=== PATIENT | female | born 1955 | race Caucasian/White ===

== ENCOUNTER 2016-11-14 08:49 | Outpatient (CLI) | payer MEDICAID ==
[~2016-11-14] VITALS: Ht 170.2 cm; Wt 81.8 kg
--- NOTE | ~2016-11-14 | HEMODYNAMI ---
PATIENT:ATILIO ALAN MEDICAL RECORD: [id number] : 55 LOCATION:DPREMA ADMISSION DATE: 11/14/16 Generatedon:11/14/201614:22 Patient name: ATILIO ALAN Patient #: [id number] SSN: : 1955 Date of study: 11/14/2016 Page: Of Hemodynamic Procedure Report Patient Data Patient Demographics Procedure consent was obtained First Name: ATILIO Gender: Female Last Name: DAYANNA : 1955 [facility] Initial: ALIDA Age: 61 year(s) Patient #: [id number] Race: Unknown Additional ID: [id number] Contact details Address: [place] [address] State: [place] City: [place] Zip code: [address] Past Medical History Allergies Allergen Reaction Date Comments Reported Other allergy 11/14/2016 TYLENOL Admission Admission Data Admission Date: 11/14/2016 Admission Time: 8:49 Height (in.): 67 BSA: 1.93 (m2) Height (cm.): 170.18 BMI: 28.19 (kg/m2) Weight (lbs.): 180 Weight (kg.): 81.65 Lab Results Lab Result Date: 11/14/2016 Lab Result Time: 0:00 Biochemistry Name Units Result Min Max BUN mg/dl 17 --(---*)-- 7 18 CK-MB ng/ml 1.6 --(-*--)-- 0 3.6 Creatinine mg/dl 1 --(--*-)-- 0.6 1.3 Creatinine l 81 --(-*--)-- 21 215 Kinase Troponin l ng/ml 0.017 --(-*--)-- 0 0.06 CBC Name Units Result Min Max Hemoglobin g/dl 12.6 -*(----)-- 13.5 17.5 Procedure Procedure Types Cath Procedure Diagnostic Procedure [facility] w/Coronaries PCI Procedure Coronary Stent Initial Miscellaneous Procedures Moderate Sedation up to 30 minutes Procedure Description Procedure Date Procedure Date: 11/14/2016 Procedure Start Time: 13:57 Procedure End Time: 14:17 Procedure Staff Name Function Liban Uribe MD Performing Physician Humberto Mcneal RT Scrub Cassie Keyes RN Nurse Melo Morales RT Monitor Procedure Data Cath Procedure Fluoroscopy Diagnostic fluoroscopy Total fluoroscopy Time: 4.4 time: 4.4 min min Diagnostic fluoroscopy Total fluoroscopy dose: 657 dose: 657 mGy mGy Contrast Material Contrast Material Type Amount (ml) Isovue 300 100 Entry Location Entry Primary Successful Side Size Upsize Upsize Entry Closure Pizarro ccessful Closure Location (Fr) 1 (Fr) 2 (Fr) Remarks Device Remarks Radial Right 6 Fr Mechanical artery Short Compression Diagnostic catheters Device Type Used For End Catheter Placement Terumo 5Fr Eliseo 110cm LV Angiography catheter Procedure Complications No complications Procedure Medications Medication Administration Route Dosage Oxygen NC 2 l/min Heparin Flush Bag added to field 2 bags (1000units/500ml NS) Lidocaine 2% added to field 20 Radial Cocktail added to field 1 syringe (Verapomil 2mg/Nitro 400mcg/Heparin 1500units) Versed I.V. 1 mg Fentanyl I.V. 50 mcg Radial Cocktail I.A. 1 syringe (Verapomil 2mg/Nitro 400mcg/Heparin 1500units) Versed I.V. 1 mg Fentanyl I.V. 50 mcg Versed I.V. 1 mg Fentanyl I.V. 50 mcg Heparin Bolus I.V. 4000 units Hemodynamics Rest BSA: 1.93 (m2) HGB: 12.6 (g/dl) O2 Consumption: Estimated: 199.03 (ml/min) O2 Co nsumption indexed: Estimated:103.12 (ml/min/m) Heart Rate: 93 (bpm) Snapshots Pre Cath Intra NCS Post Cath Vital Signs Time Heart Resp SPO2 NIBP (mmHg) Rhythm Pain Sedation Rate (ipm) (%) Status Level (bpm) 13:44:37 95 16 97 Measuring NSR 0 (11) 10(A) , No pain 13:45:04 96 16 97 211/104(163) NSR 0 (11) 10(A) , No pain 13:49:32 92 18 95 173/77(120) NSR 0 (11) 10(A) , No pain 13:53:50 91 17 96 130/73(97) NSR 0 (11) 10(A) , No pain 13:58:04 92 18 99 147/72(98) NSR 0 (11) 10(A) , No pain 14:02:12 91 16 96 107/53(89) NSR 0 (11) 9(A) , No pain 14:06:20 91 16 96 102/50(80) NSR 0 (11) 9(A) , No pain 14:10:26 88 17 97 98/56(68) NSR 0 (11) 9(A) , No pain 14:14:25 88 17 98 90/54(63) NSR 0 (11) 9(A) , No pain Medications Time Medication Route Dose Verified Delivered Reason Note s Effectiveness by by 13:43:06 Oxygen NC 2 l/min Liban Cassie Per physician Rony Keyes RN 13:43:12 Heparin Flush added 2 bags Liban Louie used for Bag to Rony Uirbe MD procedure (1000units/500ml field NS) 13:43:19 Lidocaine 2% added 20ml Liban Liban used for to vial Rony Uribe MD procedure field 13:43:24 Radial Cocktail added 1 Liban Liban used for (Verapomil to syringe Rony Uribe MD procedure 2mg/Nitro field 400mcg/Heparin 1500units) 13:51:12 Versed I.V. 1 mg Liban Cassie for sedation Rony Keyes RN 13:51:18 Fentanyl I.V. 50 mcg Liban Cassie for sedation Rony Keyes RN 13:54:23 Versed I.V. 1 mg Liban Cassie for sedation Rony Keyes RN 13:54:34 Fentanyl I.V. 50 mcg Liban Cassie for sedation Rony Keyes RN 14:00:21 Radial Cocktail I.A. 1 Liban Liban for (Verapomil syringe Rony Uribe MD vasodilation 2mg/Nitro 400mcg/Heparin 1500units) 14:00:45 Versed I.V. 1 mg Liban Cassie for sedation Rony Keyes RN 14:00:49 Fentanyl I.V. 50 mcg Liban Cassie for sedation Rony Keyes RN 14:06:04 Heparin Bolus I.V. 4000 Liban Matthews for dose units Rony Keyes RN anticoagulation verified [facility] uribe Procedure Log Time Note 13:29:32 ACC Patient presents with Stable Angina CCS Anginal Class 2--Slight limitation of ordinary activity. 13:29:34 Diagnostic Cath status Elective 13::35 Humberto Mcneal RT(R) sent for patient. Start room use. 13::42 Time tracking: Regular hours 13::47 Plan of Care:Hemodynamics will remain stable., Cardiac rhythm will remain stable., Comfort level will be maintained., Respiratory function will remain adequate., Patient/ family verbilizes understanding of procedure., Procedure tolerated without complication., Recovers from procedure without complications.. 13::35 Lab Result : Creatinine 1 mg/dl 13::35 Lab Result : BUN 17 mg/dl 13::35 Lab Result : CK-MB 1.6 ng/ml 13:30:35 Lab Result : Creatinine Kinase 81 l 13::35 Lab Result : Hemoglobin 12.6 g/dl 13:30:35 Lab Result : Troponin l 0.017 ng/ml 13:30:39 Lab results completed and on chart. 13:39:39 Patient received from Pre/Post Procedure Room to [facility] 2 Alert and oriented. Tansferred to table in Supine position. 13:39:40 Warm blankets applied, and sisi hugger turned on for patient comfort. 13:39:40 Correct patient and procedure confirmed by team. 13:39:41 Signed procedure consent form obtained from patient. 13:39:42 ECG and BP/O2 sat monitors applied to patient. 13:42:48 Vital chart was started 13:43:06 Oxygen 2 l/min NC was administered by Cassie Keyes RN; Per physician; 13:43:12 Heparin Flush Bag (1000units/500ml NS) 2 bags added to field was administered by Liban Uribe MD; used for procedure; 13:43:19 Lidocaine 2% 20ml vial added to field was administered by Liban Uribe MD; used for procedure; 13:43:24 Radial Cocktail (Verapomil 2mg/Nitro 400mcg/Heparin 1500units) 1 syringe added to field was administered by Liban Uribe MD; used for procedure; 13:48:29 Baseline sample Acquired. 13:48:29 Full Disclosure recording started 13:48:51 H&P Date Dictated: 11/13/2016 Within 30 days and on chart., H&P Addendum completed by physician on day of procedure. (MUST COMPLETE FOR ALL OUTPATIENTS). 13:48:52 Pre-procedure instructions explained to patient. 13:48:52 Pre-op teaching completed and patient verbalized understanding. 13:48:54 Family in waiting room. 13:48:55 Patient NPO since Midnight. 13:49:23 Patient allergic to Other allergyTYLENOL 13:49:25 Is the patient allergic to Iodine/contrast media? No. 13:49:29 Is patient on blood thinner?Yes 13:49:32 ACC The patient was administered the following blood thiners within the last 24 hours: ACCPlavix 13:50:08 Patient diabetic? Yes. 13:50:10 If diabetic: On Metformin? Yes 13:50:11 ----Pre-sedation anethsthesia assessment.---- 13:50:13 Previous problem with sedation/anesthesia? No ? 13:50:15 Snore? Yes 13:50:16 Sleep apnea? No 13:50:17 Deviated septum? No 13:50:18 Opens mouth fully? Yes 13:50:19 Sticks out tongue? Yes 13:50:21 Airway obstruction? No ? 13:50:23 Dentures? No ? 13:50:25 Pre procedure: right dorsailis pedis pulse 1+ Palpable, but thready & weak; easily obliterated 13:50:29 Modified Shadi's test Ulnar > 7 seconds. 13:50:31 Patient pain scale 0/10 ?. 13:50:38 IV patent on arrival in right hand with 0.9% NaCl at 10ml/hr. 13:50:40 Alarms reviewed by R. N. 13:50:41 Sharps counted by scrub and verified by R.N. 13:50:41 --------ALL STOP TIME OUT------ 13:50:42 Final Timeout: patient, procedure, and site verified with staff and physician. All members of the team are in agreement. 13:50:43 Right Radial & Right Groin site verified by team. 13:50:46 Physical assessment completed. ASA score P 2 - A patient with mild systemic disease as per Liban Uribe MD. 13:50:49 Sedation plan: IV Moderate Sedation Versed, Fentanyl 13:50:55 Use device set Radial Dx 13:50:56 Acist Syringe opened to sterile field. 13:50:56 Medline Cath Pack opened to sterile field. 13:50:56 Bag Decanter opened to sterile field. 13:50:57 Terumo 6Fr Slender Glidesheath opened to sterile field. 13:50:57 [facility] John 260cm J .035 wire opened to sterile field. 13:50:58 Acist Hand Control opened to sterile field. 13:50:58 Acist Manifold opened to sterile field. 13:50:58 Tegaderm 4 x 4 opened to sterile field. 13:50:59 MBrace Wrist Support opened to sterile field. 13:51:12 Versed 1 mg I.V. was administered by Cassie Keyes RN; for sedation; 13:51:18 Fentanyl 50 mcg I.V. was administered by Cassie Keyes RN; for sedation; 13:54:23 Versed 1 mg I.V. was administered by Cassie Keyes RN; for sedation; 13:54:34 Fentanyl 50 mcg I.V. was administered by Cassie Keyes RN; for sedation; 13:57:07 Procedure started. 13:57:28 Local anesthetic to right radial artery with Lidocaine 2% by Liban Uribe MD.INITIAL ACCESS ONLY 13:57:35 A 6 Fr Short sheath was inserted into the Right Radial artery 13:59:34 A Terumo 5Fr Eliseo 110cm catheter was advanced over the wire and used for LV Angiography. 14:00:06 LV angiography performed. 14:00:07 LV gram done using ALEJANDRE 14:00:14 Injector settings: Ml/sec: 7, Volume: 15, 14:00:21 Radial Cocktail (Verapomil 2mg/Nitro 400mcg/Heparin 1500units) 1 syringe I.A. was administered by Liban Uribe MD; for vasodilation; 14:00:45 Versed 1 mg I.V. was administered by Cassie Keyes RN; for sedation; 14:00:49 Fentanyl 50 mcg I.V. was administered by Cassie Keyes RN; for sedation; 14:01:44 EF : 60 % 14:02:09 RCA angiography performed. 14:02:38 Dashwire BasixCompak Inflation Kit opened to sterile field. 14:02:38 Childs Whisper J 300cm 0.014 guide wire opened to sterile field. 14:03:04 Cordis 6FR XBLAD 3.5 guide catheter opened to sterile field. 14:03:49 LCA angiography performed. 14:04:21 Catheter removed. 14:06:04 Heparin Bolus 4000 units I.V. was administered by Cassie Keyes RN; for anticoagulation; dose verified wtih dr uribe 14:07:13 Medtronic Launcher 6Fr AR 2.0 SH guide catheter opened to sterile field. 14:07:35 ACC PCI Site: PDA has 90% stenosis. 14:07:37 ACC Pre-intervention ROSALINA Flow is 3. 14:07:43 6 Fr AR 2 SH guide catheter was inserted over the wire 14:07:46 BoutirISPER wire advanced. 14:08:20 Inflation Number: 1 A Biofreedom 2.25 x 18 Stent (No Cost Implant) was prepped and advanced across the R PDA. The stent was deployed at 15 BJ for 0:19 (min:sec). 14:08:40 Stent catheter was removed intact over wire. 14:11:19 Inflation number: 2 A NC Euphora 2.5 x 8 balloon was prepped and advanced across the R PDA, then inflated to 11 BJ for 0:11 (min:sec). 14:11:39 Balloon removed over the wire. 14:11:40 Wire removed. 14:11:41 Guide catheter removed. 14:11:46 Contrast amount:Isovue 300 100ml. 14:11:55 Sheath removed intact; hemostasis achieved with Mechanical Compression to the Right Radial artery. 14:11:56 Procedure ended.(Physican Out) 14:13:37 Fluoroscopy time 04.40 minutes. 14:13:42 Fluoroscopy dose: 657 mGy 14:13:42 Flurop Dose total: 657 14:13:44 Sharps counted by scrub and verified by R.N. 14:13:58 TR band inflated with 10cc of air. 14:14:06 Post right radial artery:stable 14:16:02 Post Procedure Pulses reassessed and unchanged 14:16:08 Post procedure: right dorsailis pedis pulse 1+ Palpable, but thready & weak; easily obliterated. 14:16:12 Post procedure rhythm: sinus rhythm 14:16:14 Post procedure instruction explained to patient.Patient verbalizes understanding. 14:16:19 Procedure and supply charges have been captured, reviewed, submitted and are correct. 14:16:42 Procedure type changed to Cath procedure, Diagnostic procedure, LHC, LHC w/Coronaries, PCI procedure, Coronary Stent Initial, Miscellaneous Procedures, Moderate Sedation up to 30 minutes 14:16:51 Procedure Complication : No complications 14:16:53 Vital chart was stopped 14:16:54 See physician's report for complete and final results. 14:17:46 Report given to Pre/Post Procedure Room. 14:17:49 Patient transfered to Pre/Post Procedure Room with Stretcher. 14:17:51 Procedure ended. 14:17:51 Full Disclosure recording stopped 14:17:54 End room use (Document Last) 14:18:04 ACC-PCI Only Patient was given prescriptions, or instructed by Liban Uribe MD to start/continue the following medications upon discharge: Plavix 14:21:58 Patient Height : 170.18 cm 14:22:01 Patient Weight : 81.65 kg Intervention Summary Intervention Notes Time ActionType Lesion and Equipment Action# Pressure Duration Attributes Used 14:08:20 Place stent R PDA Biofreedom 1 15 00:19 2.25 x 18 Stent (No Cost Implant) 14:11:19 Inflate R PDA NC Euphora 2 11 00:11 balloon 2.5 x 8 balloon Device Usage Item Name Manufacture Quantity Catalog Hospital Part Current Minimal Lot# / Number Charge Number Stock Stock Serial# Code Acist Acist 1 10550 734735 315934 077722 20 Syringe Medical Systems Inc Medline Cardinal 1 [id number] 518360 82509 617472 5 Cath Pack Health Bag Microtek 1 2001S 240054 47879 328230 5 Goyaka Inc. Terumo 6Fr Terumo 1 [id number] 855761 439416 251412 [address] [facility] 1 656750 147362 931596 348140 30 260cm J .035 wire Acist Hand Acist 1 04533 252957 111861 114667 5 Digital Theatre Systems Inc Acist Acist 1 25731 751867 606165 083576 5 Privcap Systems Inc Tegaderm 4 3M 1 1626W 024992 135593 494760 5 x 4 MBrace Advanced 1 140-0250-00 567127 37393 140962 5 Wrist Vascular Support Dynamics Terumo 5Fr Terumo 1 90-3312 549147 047050 133261 5 Eliseo 110cm catheter Merit Merit 1 [id number] 705325 809086 127675 15 BasixCompak Medical Inflation Kit Childs Childs 1 [id number] 245777 703651 855735 5 Whisper J Vascular 300cm 0.014 guide wire Cordis 6FR Cardinal 1 [id number] 052403 976761 899713 10 XBLAD 3.5 Health guide catheter Medtronic Medtronic 1 [id number] 809900 59932 832121 1 Launcher 6Fr AR 2.0 SH guide catheter Biofreedom Biosensors 1 [facility]5-4301 863638 851739 5 [id number] 2.25 x 18 Europe SA Stent (No Cost Implant) NC Euphora Medtronic 1 [id number] 815944 932969 964763 1 [id number] 2.5 x 8 balloon Signature Audit Tut[place]iler Stage Time Signature Unsigned Intra-Procedure 11/14/2016 Melo Morales 2:22:29 PM RT(R) Signatures Monitor : Melo Morales RT Signature : Date : Time : [address] [address]
--- NOTE | ~2016-11-14 | OP ---
PATIENT NAME: ATILIO ALAN MEDICAL RECORD: [id number] :55 LOCATION:D.CAT ADMISSION DATE: SURGEON: MEGAN CURRY MD DATE OF OPERATION: 11/14/2016 PROCEDURES: 1. PTCA stent RCA. 2. Left heart catheterization. 3. Selective coronary angiography. 4. Left ventriculogram. INDICATION: Chest pain compatible with angina. PROCEDURE IN DETAIL: After informed consent was obtained and after a detailed explanation of the risks, benefits as well as alternative therapies, the patient elected to proceed with angiogram and angioplasty. The right femoral area was prepped and draped in normal sterile fashion. Right radial artery was cannulated via modified Seldinger technique with placement of 6-Italian sheath. All catheters exchanged through this sheath. FINDINGS: Left ventriculogram was performed in the standard 30-degree ALEJANDRE view, reveals good cardiac wall motion throughout all segments. Overall ejection fraction estimated 60%. SELECTIVE CORONARY ANGIOGRAPHY: 1. Left main is with no significant angiographic disease. 2. Left anterior descending has mild irregularities, but no flow-limiting stenosis. 3. The left circumflex has previously placed stent, widely patent with no significant restenosis. No disease elsewise throughout the left circumflex or its branches. 4. The right coronary has a 90% stenosis of the PDA. PTCA STENT OF THE RIGHT PDA: The stent used is a 2.25 x 18 mm BioFreedom. Result was 0% residual stenosis. OVERALL IMPRESSION: Successful percutaneous transluminal coronary angioplasty stent of the right PDA, is a 12 mm lesion and a 2.25 vessel with ROSALINA 3 flow prior to and before the intervention at 90% stenosis to 0% residual stenosis. TRANSINT:[id number] Voice Confirmation ID: [id number] DOCUMENT ID: [id number] MEGAN CURRY MD CC: [id number] DICTATION DATE: 11/14/16 1425 CONSULTING ACTUARY: 11/14/16 2145 [facility] CLI 11/14/16 [place] [id number] [place] [id number]
[~2016-11-14 08:49] MED LIST: APIDRA100 U/M1 SQ; BAYER CHEWABLE81 MG PO; BETAPACE 120 M120 MG PO; CELEXA20 MG PO; COZAAR25 MG PO; GLUCOPHAGE1000 MG PO; HUMULIN R100 U/ML SQ; HYDROCHLOROTHIA25 MG PO; LANOXIN250 MCG PO; LANTUS INSULIN10 ML SC; PLAVIX75 MG PO; TOPROL XL25 MG PO; VICTOZA0.6 MG/0.1 SQ; ZOCOR10 MG PO
[2016-11-14] MEDS ORDERED: NOVOLIN R100 U/ML SQ (09:56)
[2016-11-14] MEDS ORDERED: VICTOZA0.6 MG/0.1 SQ (09:57)
[2016-11-14] MEDS ORDERED: COZAAR50 MG PO (10:00)
[2016-11-14] MEDS ORDERED: ZOCOR20 MG PO (10:00)
[2016-11-14] MEDS ORDERED: PROTONIX40 MG PO (10:00)
[2016-11-14] MEDS ORDERED: GABAPENTIN100 MG PO (10:01)
[2016-11-14] MEDS ORDERED: CELEXA20 MG PO (10:01)
[2016-11-14] MEDS ORDERED: ALPHAGAN P 0.155 ML EACH EYE (10:02)
[2016-11-14 10:05] VITALS: BP 139/62; Ht 170.2 cm; Wt 81.8 kg
[2016-11-14 10:35] LABS: BASOPHILS 0.5 % (0-2); HEMOGLOBIN 12.6 g/dL (12-16); IMMATURE GRANULOCYTES 0.2 % (0-5); LYMPHOCYTES 27.1 % (15-50); MCH 32.4 pg (26.0-34.0); MCHC 34.1 g/dL (31.0-37.0); MCV 95.1 fL (80.0-100.0); MEAN PLATELET VOLUME 10.4 fL (7.4-10.4); MONOCYTES 7.8 % (2-11); NEUTROPHILS 62.4 % (40-80); PLATELET COUNT 282 10x3/uL (130-400); RBC 3.89 10x6/uL (4.00-5.40); RDW 12.6 % (11.5-14.5); WBC 8.4 10x3/uL (4.8-10.8)
[2016-11-14 11:05] LABS: CALCIUM 9.7 mg/dL (8.5-10.1); CARBON DIOXIDE 29.2 mmol/L (21.0-32.0); CHLORIDE - SERUM 98 mmol/L (98-107); CKMB 1.6 U/L (0.0-3.6); CREATINE KINASE 81 UL (21-215); POTASSIUM - SERUM 4.4 mmol/L (3.5-5.1); SODIUM 135 mmol/L (136-145); UREA NITROGEN 17 mg/dL (7-18); eGFR NON AFRICAN AMERICAN 60 mL/min (90-120)
[2016-11-14 11:08] LABS: CALC OSMOLALITY 279 mosm/kg (275-300); GLUCOSE 240 mg/dL (74-106); TROPONIN-I < 0.017 ng/mL (0.000-0.060)
[2016-11-14] MEDS ORDERED: IBUPROFEN800 MG (14:22)
--- NOTE | 2016-11-14 14:44 | NUR ---
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 PT IS DROWSY, DENIES ANY C/O CHEST PAIN OR NAUSEA. RR EVEN AND UNLABORED ON O2 AT 2 LPM VIA NC. TR BAND CDI TO RIGHT WRIST, NO BLEEDING OR HEMATOMA NOTED. WRIST IMMOBILIZER IN PLACE. NO FAMILY AT BEDSIDE, CALL LIGHT IN REACH.
--- NOTE | 2016-11-14 14:45 | NUR ---
4165 PT DENIES ANY C/O. NO BLEEDING OR HEMATOMA AT CATH SITE. NO FAMILY AT BEDSIDE. CALL LIGHT IN REACH.
--- NOTE | 2016-11-14 16:04 | NUR ---
1530 TR BAND CDI, NO BLEEDING OR HEMATOMA NOTED. CAP REFILL IS BRISK TO FINGRES, FINGERS WARM TO TOUCH. SANDWICH TRAY SERVED. PT DENIES ANY C/O AT THIS TIME. CALL LIGHT IS IN REACH.
--- NOTE | 2016-11-14 16:25 | NUR ---
1620 POST PROCEDURE EKG OBTAINED. PT DENIES ANY C/O. TR BAND CDI. AT BEDSIDE.
--- NOTE | 2016-11-14 17:10 | NUR ---
1710 TR BAND DEFLATION BEGUN. PT DENIES ANY C/O. AIRAM PO FLUIDS, STATES DOES NOT WANT HER SANDWICH AT THIS TIME.
--- NOTE | 2016-11-14 18:35 | NUR ---
1800 TR BAND DEFLATION COMPLETE, NO BLEEDING OR HEMATOMA NOTED. 2X2 AND TEGADERM TO SITE. IV DC'D WITH CATH INTACT. 1814 PT HAS DRESSED FOR DC AND AMBULATED TO THE BATHROOM, VOIDED QS. DENIES ANY C/O. 1829 REVIEWED DC INSTRUCTIONS WITH PT WHO VERBALIZES UNDERSTANDING. CATH SITE DRESSING REMAINS CDI, NO BLEEDING OR HEMATOMA NOTED. PT DENIES ANY C/O. PT ESCORTED TO PRIVATE AUTO VIA WC BY STAFF WITH DRIVING HER HOME.
== END 2016-11-14 18:30 | disposition home or self-care (01) ==
LOC: D.CATH 08:49
PROVIDERS: Internal Medicine Interventional Cardiology
DX: I25.119 Atherosclerotic heart disease of native coronary artery with unspecified angina pectoris (principal); Z00.6 Encounter for examination for normal comparison and control in clinical research program; Z01.812 Encounter for preprocedural laboratory examination

== ENCOUNTER 2018-09-25 13:30 | Inpatient (IN) | payer MEDICAID ==
[~2018-09-25] VITALS: Ht 170.2 cm; Wt 81.6 kg
[~2018-09-25 13:30] MED LIST changes: +ALPHAGAN P 0.155 ML EACH EYE; +COZAAR50 MG PO; +GABAPENTIN100 MG PO; +IBUPROFEN800 MG; +NOVOLIN R100 U/ML SQ; +PROTONIX40 MG PO; +ZOCOR20 MG PO
[2018-09-25] MEDS ORDERED: GLUCOPHAGE1000 MG PO (13:39)
[2018-09-25] MEDS ORDERED: BASAGLAR K100 UNIT/1 SC (13:40)
[2018-09-25 14:13] LABS: APPEARANCE CLEAR (CLEAR); BILIRUBIN NEGATIVE (NEGATIVE); COLOR YELLOW (YELLOW); GLUCOSE 1000 mg/dL (NEGATIVE); KETONE MODERATE mg/dL (NEGATIVE); NITRITE NEGATIVE (NEGATIVE); PROTEIN NEGATIVE (NEGATIVE); SPECIFIC GRAVITY 1.015 (1.005-1.020); UROBILINOGEN NORMAL (NORMAL)
[2018-09-25 14:17] LABS: BASOPHILS 0.5 % (0-2); EOSINOPHILS 1.2 % (0-7); HEMATOCRIT 38.4 % (36.0-48.0); HEMOGLOBIN 13.3 g/dL (12-16); IMMATURE GRANULOCYTES 0.3 % (0-5); LYMPHOCYTES 16.2 % (15-50); MCH 31.9 pg (26.0-34.0); MCHC 34.6 g/dL (31.0-37.0); MCV 92.1 fL (80.0-100.0); MEAN PLATELET VOLUME 10.9 fL (7.4-10.4); MONOCYTES 12.7 % (2-11); NEUTROPHILS 69.1 % (40-80); PLATELET COUNT 142 10x3/uL (130-400); RBC 4.17 10x6/uL (4.00-5.40); RDW 12.8 % (11.5-14.5); WBC 6.1 10x3/uL (4.8-10.8)
[2018-09-25 14:31] LABS: ALBUMIN 3.7 g/dL (3.4-5.0); ALKALINE PHOSPHATASE 86 U/L (46-116); ALT (SGPT) 26 U/L (10-68); BILIRUBIN - TOTAL 0.55 mg/dL (0.2-1.3); CARBON DIOXIDE 24.7 mmol/L (21.0-32.0); CHLORIDE - SERUM 93 mmol/L (98-107); CREATININE - SERUM 1.2 mg/dL (0.6-1.3); POTASSIUM - SERUM 5.8 mmol/L (3.5-5.1); PROTEIN - SERUM 7.7 g/dL (6.4-8.2); SODIUM 129 mmol/L (136-145); UREA NITROGEN 22 mg/dL (7-18); eGFR NON AFRICAN AMERICAN 48 mL/min (90-120)
[2018-09-25 14:34] LABS: AMYLASE - SERUM 23 U/L (25-115); LIPASE 74 U/L (73-393)
[2018-09-25 14:39] LABS: CALC OSMOLALITY 273 mosm/kg (275-300); GLUCOSE 319 mg/dL (74-106); TROPONIN-I < 0.017 ng/mL (0.000-0.060)
[2018-09-25 16:20] VITALS: BP 178/68
[2018-09-25 17:15] LABS: ANION GAP 13.8 mmol/L (8-16); CALCIUM 8.2 mg/dL (8.5-10.1); CARBON DIOXIDE 25.3 mmol/L (21.0-32.0); POTASSIUM - SERUM 4.1 mmol/L (3.5-5.1)
[2018-09-25 17:37] VITALS: BP 168/72
[2018-09-25] MEDS ORDERED: XALATAN 0.0052.5 ML EACH EYE (19:24)
[2018-09-25] MEDS ORDERED: TIMOPTIC 0.5 % O5 ML EACH EYE (19:30)
[2018-09-25 19:43] VITALS: BP 138/58; BMI 28.2
[2018-09-25 21:01] VITALS: BP 138/58
[2018-09-26 01:20] VITALS: BP 130/80
[2018-09-26 06:59] LABS: BASOPHILS 0.2 % (0-2); EOSINOPHILS 0.8 % (0-7); HEMATOCRIT 31.9 % (36.0-48.0); HEMOGLOBIN 10.9 g/dL (12-16); IMMATURE GRANULOCYTES 0.4 % (0-5); LYMPHOCYTES 25.1 % (15-50); MCH 31.1 pg (26.0-34.0); MCHC 34.2 g/dL (31.0-37.0); MCV 90.9 fL (80.0-100.0); MEAN PLATELET VOLUME 10.4 fL (7.4-10.4); MONOCYTES 14.5 % (2-11); RBC 3.51 10x6/uL (4.00-5.40); RDW 12.9 % (11.5-14.5)
[2018-09-26 07:08] LABS: PLATELET COUNT 201 10x3/uL (130-400)
[2018-09-26 07:20] LABS: ALBUMIN 2.8 g/dL (3.4-5.0); ANION GAP 12.4 mmol/L (8-16); BILIRUBIN - TOTAL 0.21 mg/dL (0.2-1.3); CALCIUM 8.2 mg/dL (8.5-10.1); CARBON DIOXIDE 25.6 mmol/L (21.0-32.0); CREATININE - SERUM 0.9 mg/dL (0.6-1.3); PROTEIN - SERUM 6.2 g/dL (6.4-8.2)
[2018-09-26 09:25] VITALS: BP 176/57
[2018-09-26 13:48] VITALS: BP 157/61
[2018-09-26 17:18] VITALS: BP 159/69
[2018-09-26 19:45] VITALS: BP 146/42
[2018-09-26 23:55] VITALS: BP 125/55
[2018-09-27 03:45] VITALS: BP 109/45
[2018-09-27 06:50] LABS: BASOPHILS 0.3 % (0-2); EOSINOPHILS 2.3 % (0-7); HEMATOCRIT 31.7 % (36.0-48.0); HEMOGLOBIN 10.9 g/dL (12-16); IMMATURE GRANULOCYTES 0.3 % (0-5); LYMPHOCYTES 29.9 % (15-50); MCH 31.2 pg (26.0-34.0); MCHC 34.4 g/dL (31.0-37.0); MCV 90.8 fL (80.0-100.0); MEAN PLATELET VOLUME 9.9 fL (7.4-10.4); MONOCYTES 12.5 % (2-11); NEUTROPHILS 54.7 % (40-80); PLATELET COUNT 213 10x3/uL (130-400); RBC 3.49 10x6/uL (4.00-5.40); RDW 12.7 % (11.5-14.5)
[2018-09-27 06:56] LABS: WBC 6.5 10x3/uL (4.8-10.8)
[2018-09-27 07:13] LABS: ALBUMIN 2.9 g/dL (3.4-5.0); ANION GAP 12.2 mmol/L (8-16); BILIRUBIN - TOTAL 0.16 mg/dL (0.2-1.3); CALCIUM 8.4 mg/dL (8.5-10.1); CARBON DIOXIDE 28.9 mmol/L (21.0-32.0); CREATININE - SERUM 0.9 mg/dL (0.6-1.3); POTASSIUM - SERUM 4.1 mmol/L (3.5-5.1); PROTEIN - SERUM 5.8 g/dL (6.4-8.2)
[2018-09-27 08:48] VITALS: BP 161/58
[2018-09-27 13:27] VITALS: BP 113/53
[2018-09-27 18:36] VITALS: BP 143/58
[2018-09-27 21:12] VITALS: BP 146/65
[2018-09-28 01:43] VITALS: BP 148/57
[2018-09-28 05:31] VITALS: BP 133/45
[2018-09-28 06:25] LABS: BASOPHILS 0.3 % (0-2); EOSINOPHILS 2.9 % (0-7); HEMATOCRIT 30.8 % (36.0-48.0); HEMOGLOBIN 10.4 g/dL (12-16); IMMATURE GRANULOCYTES 0.5 % (0-5); MCH 30.7 pg (26.0-34.0); MCHC 33.8 g/dL (31.0-37.0); MCV 90.9 fL (80.0-100.0); MEAN PLATELET VOLUME 9.7 fL (7.4-10.4); MONOCYTES 8.8 % (2-11); NEUTROPHILS 51.5 % (40-80); PLATELET COUNT 221 10x3/uL (130-400); RBC 3.39 10x6/uL (4.00-5.40); RDW 12.9 % (11.5-14.5); WBC 6.5 10x3/uL (4.8-10.8)
[2018-09-28 07:07] LABS: ALBUMIN 2.8 g/dL (3.4-5.0); ALKALINE PHOSPHATASE 61 U/L (46-116); ALT (SGPT) 20 U/L (10-68); BILIRUBIN - TOTAL 0.24 mg/dL (0.2-1.3); CALC OSMOLALITY 282 mosm/kg (275-300); CHLORIDE - SERUM 105 mmol/L (98-107); CREATININE - SERUM 0.8 mg/dL (0.6-1.3); GLUCOSE 178 mg/dL (74-106); POTASSIUM - SERUM 4.5 mmol/L (3.5-5.1); PROTEIN - SERUM 5.6 g/dL (6.4-8.2); SODIUM 140 mmol/L (136-145); UREA NITROGEN 13 mg/dL (7-18); eGFR NON AFRICAN AMERICAN 77 mL/min (90-120)
[2018-09-28 08:30] VITALS: BP 160/72
--- NOTE | 2018-09-28 13:13 | MORECARE ---
CASE MANAGEMENT DISCHARGE SUMMARY PATIENT: ATILIO ALAN ALIDA UNIT: [id number] ADM DATE: 09/25/18 AGE: 63 : 55 SEX: F ROOM/BED: D.2239 AUTHOR: VALENTIN,DOC PHYSICIAN: REFERRING PHYSICIAN: JESSICA HANSON MD DATE OF SERVICE: 09/28/18 Discharge Plan Patient Name: ATILIO ALAN Facility: [facility]:[place] : 1955 Planned Disposition: Home Anticipated Discharge Date: Discharge Date: Expected LOS: Initial Reviewer: [email or web address] Initial Review Date: 09/28/2018 Generated: 09/28/18 2:13 pm Comments DCP- Discharge Planning Updated by [email or web address]: Azeb Dominguez on 09/28/18 12:[address] Patient Name: ATILIO ALAN Admission Status: ER Accout number: [id number] Admission Date: 09-25-2018 : 1955 Admission Diagnosis:ULCERATIVE (CHRONIC) RECTOSIGMOIDITIS WITHOUT COMPLICAT Attending: JESSICA HANSON Current LOS: 3 Anticipated DC Date: Planned Disposition: Home [place] [employer] [place] Discharge Planning Comments: CM MET WITH PT AFTER OBTAINING VERBAL CONSENT TO DO CM ASSESSMENT ABOUT CM ROLE AND ANY DC NEEDS.. EDUCATED PT ON ALL RESOURCES LIKE HH, REHABS, AND ANY DME THEY MIGHT NEED. DENIES ANY CM NEEDS AT THIS TIME. WILL RETURN HOME AND PT STATES THAT IS A SAFE DC PLAN. CM WILL CONTINUE TO FOLLOW Major General: Azeb Dominguez DCPIA - Discharge Planning Initial Assessment Updated by [email or web address]: Azeb Dominguez on 09/28/18 1:07 pm * Is the patient Alert and Oriented? Yes * How many steps to enter\exit or inside your home? na * PCP viktoriya * Pharmacy [facility] [address] * Preadmission Environment Home with Family * ADLs Independent * Other Equipment none * List name and contact numbers for known caregivers / representatives who currently or will assist patient after discharge: jenn [phone] * Verbal permission to speak to the caregivers and representatives has been obtained from the patient. N/A * Additional services required to return to the preadmission environment? No * Can the patient safely return to the preadmission environment? Yes * Has this patient been hospitalized within the prior 30 days at any hospital? No Patient Name: ATILIO ALAN Page 76985 at 1313 All edits/amendments must be made on the electronic document DICTATION DATE: 09/28/181311 NEW HOME SALES CONSULTANT: DESIRAE 09/28/18 131 RPT#: [id number] DC DATE: STATUS: ADM IN [facility] [address] [place] [address] END OF REPORT
[2018-09-28 14:00] VITALS: BP 193/76
[2018-09-28 14:58] VITALS: Ht 170.2 cm; Wt 81.6 kg
[2018-09-28 18:52] VITALS: BP 152/71
[2018-09-28 21:37] VITALS: BP 163/68
[2018-09-29 01:18] VITALS: BP 159/57
[2018-09-29 06:11] VITALS: BP 152/64
[2018-09-29 06:39] LABS: BASOPHILS 0.4 % (0-2); HEMATOCRIT 31.8 % (36.0-48.0); IMMATURE GRANULOCYTES 0.7 % (0-5); LYMPHOCYTES 28.6 % (15-50); MCHC 34.6 g/dL (31.0-37.0); MCV 89.6 fL (80.0-100.0); MONOCYTES 6.9 % (2-11); NEUTROPHILS 59.4 % (40-80); PLATELET COUNT 262 10x3/uL (130-400); RBC 3.55 10x6/uL (4.00-5.40); RDW 12.9 % (11.5-14.5); WBC 7.7 10x3/uL (4.8-10.8)
[2018-09-29 06:50] LABS: ALKALINE PHOSPHATASE 63 U/L (46-116); ALT (SGPT) 24 U/L (10-68); BILIRUBIN - DIRECT 0.08 mg/dL (0.00-0.30); BILIRUBIN - INDIRECT 0.25 mg/dL (0.00-1.00); BILIRUBIN - TOTAL 0.33 mg/dL (0.2-1.3); CALCIUM 8.4 mg/dL (8.5-10.1); CARBON DIOXIDE 25.4 mmol/L (21.0-32.0); CHLORIDE - SERUM 106 mmol/L (98-107); CHOL - HDL RATIO 2.6 ratio (2.3-4.1); CHOLESTEROL, TOTAL 95 mg/dL (0-200); CREATININE - SERUM 0.7 mg/dL (0.6-1.3); GLUCOSE 164 mg/dL (74-106); HDL CHOLESTEROL 36 mg/dL (32-96); LDL CHOLESTEROL 46 mg/dL (0-100); LDL-HDL RATIO 1.3 ratio (1.5-3.5); PROTEIN - SERUM 6.4 g/dL (6.4-8.2); SODIUM 139 mmol/L (136-145); TRIGLYCERIDE 69 mg/dL (30-200); eGFR NON AFRICAN AMERICAN 90 mL/min (90-120)
[2018-09-29 06:51] LABS: CALC OSMOLALITY 279 mosm/kg (275-300); POTASSIUM - SERUM 3.7 mmol/L (3.5-5.1); UREA NITROGEN 8 mg/dL (7-18)
[2018-09-29 08:46] VITALS: BP 130/45
[2018-09-29] MEDS ORDERED: LEVAQUIN750 MG PO (09:36)
[2018-09-29] MEDS ORDERED: FLAGYL500 MG PO (09:37)
--- NOTE | 2018-09-29 10:51 | MORECARE ---
CASE MANAGEMENT DISCHARGE SUMMARY PATIENT: ATILIO ALAN ALIDA UNIT: [id number] ADM DATE: 09/25/18 AGE: 63 : 55 SEX: F ROOM/BED: D.2239 AUTHOR: VALENTIN,DOC PHYSICIAN: REFERRING PHYSICIAN: JESSICA HANSON MD DATE OF SERVICE: 09/29/18 Discharge Plan Patient Name: ATILIO ALAN Facility: [facility]:[place] : 1955 Planned Disposition: Home Anticipated Discharge Date: Discharge Date: Expected LOS: Initial Reviewer: [email or web address] Initial Review Date: 09/28/2018 Generated: 09/29/18 11:51 am Comments DCP- Discharge Planning Updated by [email or web address]: Dior Pinedo on 09/29/18 9:[address] Patient Name: ATILIO ALAN Encounter No: [id number] : 1955 Primary Insurance: [employer] [facility] Anticipated DC Date: Planned Disposition: Home External Planned Provider: : DCP follow-up note: Patient and family in agreement with discharge plan. No changes to plan. Case management will follow and assist as needed. Dior Pinedo DCP- Discharge Planning Updated by [email or web address]: Azeb Dominguez on 09/28/18 12:[address] Patient Name: ATILIO ALAN Admission Status: ER Accout number: [id number] Admission Date: 09-25-2018 : 1955 Admission Diagnosis:ULCERATIVE (CHRONIC) RECTOSIGMOIDITIS WITHOUT COMPLICAT Attending: JESSICA HANSON Current LOS: 3 Anticipated DC Date: Planned Disposition: Home Primary Insurance: [employer] [place] Discharge Planning Comments: CM MET WITH PT AFTER OBTAINING VERBAL CONSENT TO DO CM ASSESSMENT ABOUT CM ROLE AND ANY DC NEEDS.. EDUCATED PT ON ALL RESOURCES LIKE HH, REHABS, AND ANY DME THEY MIGHT NEED. DENIES ANY CM NEEDS AT THIS TIME. WILL RETURN HOME AND PT STATES THAT IS A SAFE DC PLAN. CM WILL CONTINUE TO FOLLOW Curb Supervisor: Azeb Dominguez DCPIA - Discharge Planning Initial Assessment Updated by [email or web address]: Azeb Dominguez on 09/28/18 1:07 pm * Is the patient Alert and Oriented? Yes * How many steps to enter\exit or inside your home? na * PCP viktoriya * Pharmacy [facility] [address] * Preadmission Environment Home with Family * ADLs Independent * Other Equipment none * List name and contact numbers for known caregivers / representatives who currently or will assist patient after discharge: jenn [phone] * Verbal permission to speak to the caregivers and representatives has been obtained from the patient. N/A * Additional services required to return to the preadmission environment? No * Can the patient safely return to the preadmission environment? Yes * Has this patient been hospitalized within the prior 30 days at any hospital? No Last DP export: 09/28/18 12:13 pm Patient Name: ATILIO ALAN Page 63062 at 1051 All edits/amendments must be made on the electronic document DICTATION DATE: 09/29/18 105 PEDIATRIC DENTAL ASSISTANT: DESIRAE 09/29/18 1050 RPT#: [id number] DC DATE: STATUS: ADM IN [facility] [address] [place] [address] END OF REPORT
== END 2018-09-29 13:17 | disposition home or self-care (01) | DRG 386 ==
LOC: D.ER 13:30 → D.EDHOLD 17:39 → D.MS 17:39
PROVIDERS: Family Medicine; ADMIT Family Medicine; ATTEND Family Medicine
DX: K51.30 Ulcerative (chronic) rectosigmoiditis without complications (principal); E87.1 Hypo-osmolality and hyponatremia; E86.0 Dehydration; E87.5 Hyperkalemia; E11.65 Type 2 diabetes mellitus with hyperglycemia; I25.10 Atherosclerotic heart disease of native coronary artery without angina pectoris; E11.40 Type 2 diabetes mellitus with diabetic neuropathy, unspecified

== ENCOUNTER 2018-10-02 20:32 | Observation (INO) | payer MEDICAID ==
[~2018-10-02] VITALS: Ht 170.2 cm; Wt 81.8 kg
[~2018-10-02 20:32] MED LIST changes: +BASAGLAR K100 UNIT/1 SC; +FLAGYL500 MG PO; +LEVAQUIN750 MG PO; +TIMOPTIC 0.5 % O5 ML EACH EYE; +XALATAN 0.0052.5 ML EACH EYE
[2018-10-02 21:29] LABS: BASOPHILS 0.2 % (0-2); EOSINOPHILS 2.3 % (0-7); HEMATOCRIT 35.6 % (36.0-48.0); HEMOGLOBIN 12.4 g/dL (12-16); IMMATURE GRANULOCYTES 1.2 % (0-5); LYMPHOCYTES 31.8 % (15-50); MCH 31.6 pg (26.0-34.0); MCHC 34.8 g/dL (31.0-37.0); MCV 90.6 fL (80.0-100.0); MEAN PLATELET VOLUME 9.8 fL (7.4-10.4); MONOCYTES 8.1 % (2-11); NEUTROPHILS 56.4 % (40-80); RBC 3.93 10x6/uL (4.00-5.40); RDW 13.1 % (11.5-14.5); WBC 9.3 10x3/uL (4.8-10.8)
[2018-10-02 21:29] LABS: APPEARANCE CLEAR (CLEAR); COLOR YELLOW (YELLOW); GLUCOSE 250 mg/dL (NEGATIVE); NITRITE NEGATIVE (NEGATIVE); PROTEIN NEGATIVE (NEGATIVE); SPECIFIC GRAVITY 1.015 (1.005-1.020)
[2018-10-02 21:30] LABS: PLATELET COUNT 352 10x3/uL (130-400)
[2018-10-02 21:30] LABS: BILIRUBIN NEGATIVE (NEGATIVE); KETONE NEGATIVE (NEGATIVE); UROBILINOGEN NORMAL (NORMAL)
[2018-10-02 21:31] LABS: ALBUMIN 3.5 g/dL (3.4-5.0); ALKALINE PHOSPHATASE 69 U/L (46-116); ALT (SGPT) 30 U/L (10-68); BILIRUBIN - TOTAL 0.33 mg/dL (0.2-1.3); CALC OSMOLALITY 281 mosm/kg (275-300); CARBON DIOXIDE 25.4 mmol/L (21.0-32.0); CHLORIDE - SERUM 102 mmol/L (98-107); GLUCOSE 196 mg/dL (74-106); POTASSIUM - SERUM 3.8 mmol/L (3.5-5.1); PROTEIN - SERUM 7.4 g/dL (6.4-8.2); SODIUM 138 mmol/L (136-145); UREA NITROGEN 14 mg/dL (7-18); eGFR NON AFRICAN AMERICAN 59 mL/min (90-120)
[2018-10-02 21:39] LABS: CREATINE KINASE 86 UL (21-215); LIPASE 444 U/L (73-393); THYROID STIMULATING HORMONE 2.45 uIU/mL (0.36-3.74)
[2018-10-02 21:41] LABS: TROPONIN-I < 0.017 ng/mL (0.000-0.060)
--- NOTE | 2018-10-02 23:27 | NUR ---
ARRIVED ON FLOOR VIA WC. SELF TRANSFERRED TO BED. FAMILY AT SIDE. ORIENTED TO ROOM AND CALL LIGHT. IV INFUSING PER ORDER TO RIGHT WRIST. ASSESSMENT AT HISTORY PER FLOW SHEET.
[2018-10-02] MEDS ORDERED: MULTI-DAY VITAM1 TAB PO (23:41)
[2018-10-02] MEDS ORDERED: PROBIOTIC GUMMY PO (23:41)
[2018-10-02] MEDS ORDERED: VITAMIN D31000 UNI2 PO (23:41)
[2018-10-02] MEDS ORDERED: B12 PO (23:42)
[2018-10-02] MEDS ORDERED: B6 PO (23:42)
[2018-10-03 00:47] VITALS: BP 145/50; Ht 170.2 cm; Wt 81.8 kg
[2018-10-03 05:55] VITALS: BP 155/53
[2018-10-03 07:18] LABS: ANION GAP 11.3 mmol/L (8-16); CALCIUM 8.4 mg/dL (8.5-10.1); CREATININE - SERUM 0.9 mg/dL (0.6-1.3); POTASSIUM - SERUM 4.3 mmol/L (3.5-5.1)
[2018-10-03 07:21] LABS: BASOPHILS 0.6 % (0-2); EOSINOPHILS 2.5 % (0-7); HEMATOCRIT 31.6 % (36.0-48.0); HEMOGLOBIN 10.6 g/dL (12-16); IMMATURE GRANULOCYTES 1.3 % (0-5); LYMPHOCYTES 35.3 % (15-50); MCH 30.5 pg (26.0-34.0); MCHC 33.5 g/dL (31.0-37.0); MCV 91.1 fL (80.0-100.0); MEAN PLATELET VOLUME 10.1 fL (7.4-10.4); MONOCYTES 10.3 % (2-11); PLATELET COUNT 323 10x3/uL (130-400); RBC 3.47 10x6/uL (4.00-5.40); RDW 13.2 % (11.5-14.5); WBC 8.9 10x3/uL (4.8-10.8)
[2018-10-03 08:13] VITALS: BP 168/64
--- NOTE | 2018-10-03 10:34 | NUR ---
ALERT AND ORIENTED WITH ABDOMEN GAURDED ON PALPATION WITH HYPOACTIVE BS X4. IVF INFUSING AT PRESCRIBED RATE. TELEMETRY INTACT SR. LUNGS CTA. ENCOURAGED TO USE CALL LIGHT FOR ASSSIT. DENIES ANY PAIN OR DISCOMFORT AT THIS TIME.
[2018-10-03] MEDS ORDERED: MIRALAX17 GM PO (11:58)
[2018-10-03 12:37] VITALS: BP 164/69
--- NOTE | 2018-10-03 12:59 | MORECARE ---
CASE MANAGEMENT DISCHARGE SUMMARY PATIENT: ATILIO ALAN ALIDA UNIT: [id number] ADM DATE: 10/02/18 AGE: 63 : 55 SEX: F ROOM/BED: D.2216 AUTHOR: CAROL ANN HANSON PHYSICIAN: REFERRING PHYSICIAN: MAJOR RIVAS MD DATE OF SERVICE: 10/03/18 Discharge Plan Patient Name[facility]AN [facility] [facility] 1955 Planned Disposition: Home Anticipated Discharge Date: 10/03/18 Discharge Date: Expected LOS: 1 Initial Reviewer: [email or web address] Initial Review Date: 10/03/2018 Generated: 10/03/18 1:59 pm Comments DCP- Discharge Planning Updated by [email or web address]: Anya Gonzalez on 10/03/18 11:[address] patient for discharge to home. She was readmitted 3 days after discharge. She had obtained her prescriptions. She had followed up with her PCP post discharge. She denies any needs. [facility] will followup with her. She denies any needs and had transportation at the bedside. 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
--- NOTE | 2018-10-03 13:35 | NUR ---
IV DISCONTINUED WITH VERBALIZING UNDERSTANDING OF DISCHARGE INSTRUCTIONS WITH PRESENT. TELEMETRY DISCONTINUED AND DISCHARGED POV WITH HSUBAND. STABLE AT TIME OF DEPARTURE.
--- NOTE | 2018-10-03 14:09 | NUR ---
IV DISCONTINUED ALONG WITH TELEMETRY. VERBALIZED UNDERSTANDING OF DISCHARGE INSTRUCTIONS WITH HSUBAND PRESENT. LEFT VIA POV UNDER CARE OF . STABLE AT TIME OF DISCHARGE.
== END 2018-10-03 14:09 | disposition home or self-care (01) ==
LOC: D.ER 20:32 → OBSVTIME 22:53 → D.EDHOLD 22:53 → D.MS 23:00
PROVIDERS: Family Medicine; ADMIT Internal Medicine Nephrology; ATTEND Internal Medicine Nephrology
DX: K59.00 Constipation, unspecified (principal); E11.65 Type 2 diabetes mellitus with hyperglycemia; E11.40 Type 2 diabetes mellitus with diabetic neuropathy, unspecified; I25.119 Atherosclerotic heart disease of native coronary artery with unspecified angina pectoris; M19.90 Unspecified osteoarthritis, unspecified site; F32.9 Major depressive disorder, single episode, unspecified; R19.7 Diarrhea, unspecified

== ENCOUNTER 2018-10-27 08:30 | Day surgery (SDC) | payer MEDICAID ==
[2018-10-26 14:33] LABS: HEMATOCRIT 33.8 % (36.0-48.0); HEMOGLOBIN 11.5 g/dL (12-16); MCH 31.7 pg (26.0-34.0); MCV 93.1 fL (80.0-100.0); MEAN PLATELET VOLUME 10.5 fL (7.4-10.4); RBC 3.63 10x6/uL (4.00-5.40); RDW 13.4 % (11.5-14.5); WBC 8.6 10x3/uL (4.8-10.8)
[2018-10-26 14:47] LABS: ANION GAP 10.2 mmol/L (8-16); CARBON DIOXIDE 28.8 mmol/L (21.0-32.0); CREATININE - SERUM 0.9 mg/dL (0.6-1.3)
[~2018-10-27] VITALS: Ht 170.2 cm; Wt 80.7 kg
[~2018-10-27 08:30] MED LIST changes: +B12 PO; +B6 PO; +MIRALAX17 GM PO; +MULTI-DAY VITAM1 TAB PO; +PROBIOTIC GUMMY PO; +VITAMIN D31000 UNI2 PO
[2018-10-27] MEDS ORDERED: PROTONIX20 MG (09:38)
[2018-10-27 09:47] VITALS: BP 140/75; Ht 170.2 cm; Wt 80.7 kg
[2018-10-27] MEDS ORDERED: OXYCODONE HCL5 M1 PO (11:20)
--- NOTE | 2018-10-27 12:45 | NUR ---
ASSUMED CARE OF PATIENT. FAMILY AT BEDSIDE.
--- NOTE | 2018-10-27 13:00 | NUR ---
ICE CHIPS TAKEN TO PATIENT. FAMILY AT BEDSIDE.
--- NOTE | 2018-10-27 13:20 | NUR ---
NICOLETTE BRAGA SERVED TO PATIENT. SPOUSE AT BEDSIDE.
--- NOTE | 2018-10-27 14:05 | NUR ---
TOLERATED FL TRAY. AMBULATED TO BATHROOM AND VOIDED WITHOUT DIFFICULTY.
--- NOTE | 2018-10-27 14:10 | NUR ---
IV DC'D WITH CATHETER INTACT. WRITTEN AND VERBAL DC INST. GIVEN TO PT. VERBALIZED UNDERSTANDING.
--- NOTE | 2018-10-27 14:35 | NUR ---
DC'D HOME WITH FAMILY VIA PRIVATE VEHICLE. STABLE AT TIME [place].
== END 2018-10-27 14:35 | disposition home or self-care (01) ==
LOC: D.OPS 08:30
PROVIDERS: Anesthesiology; ATTEND Surgery
DX: K80.20 Calculus of gallbladder without cholecystitis without obstruction (principal); E11.9 Type 2 diabetes mellitus without complications; Z01.812 Encounter for preprocedural laboratory examination